=== PATIENT | male | born 1975 | race Caucasian/White ===

== ENCOUNTER → 2024-09-20 07:26 | Outpatient (REF) | payer BC, SELFPAY | LOC: RAD 07:26 | PROVIDERS: ATTENDING PHYSICIAN Nurse Practitioner Family | DX: R05.3 Chronic cough (principal) | CPT/HCPCS: 71046 ==

== ENCOUNTER → 2024-09-24 14:01 | Outpatient (REF) | payer BC, SELFPAY | LOC: HWRAD 14:01 | PROVIDERS: ATTENDING PHYSICIAN Nurse Practitioner Family; FAMILY PHYSICIAN Family Medicine | DX: R93.89 Abnormal findings on diagnostic imaging of other specified body structures (principal); R91.1 Solitary pulmonary nodule | CPT/HCPCS: 71250 ==

== ENCOUNTER → 2025-01-13 13:58 | Outpatient (REF) | payer BC, SELFPAY ==
[2025-01-13 15:10] LABS: % Basophils 0.7 % (0-2); % Eosinophils 3.4 % (0-6); % Immature Granulocytes 0.4 % (0-0.5); % Lymphocytes 29.8 % (20.5-51.1); % Monocytes 6.6 % (1.7-9.3); % Neutrophils 59.1 % (42.2-75.2); Absolute Basophils 0.1 10^3/uL (0-0.2); Absolute Eosinophils 0.3 10^3/uL (0-0.7); Absolute Lymphocytes 2.7 10^3/uL (1.2-3.4); Absolute Monocytes 0.6 10^3/uL (0.1-0.6); Absolute Neutrophils 5.3 10^3/uL (1.4-6.5); Hematocrit 46.7 % (39.0-52.0); Hemoglobin 15.7 g/dL (13.0-18.0); Mean Corp Hgb Conc. 33.6 g/dL (33.0-37.0); Mean Corpuscular Hgb 29.1 pg (27.0-31.0); Mean Corpuscular Volume 86.5 fL (80.0-94.0); Mean Platelet Volume 9.7 fL (7.4-10.4); Nucleated Red Blood Cells % 0 % (-); Platelet Count 245 10^3/uL (130-400); Red Cell Dist. Width 12.7 % (11.5-14.5); White Blood Cell Count 8.9 10^3/uL (4.8-10.8)
[2025-01-16 08:22] LABS: Aspergillus fumigatus 0.39 kU/L (<=0.34); Box Elder/Maple Tree 9.32 kU/L (<=0.34); Cat Epithelium/Dander 6.74 kU/L (<=0.34); Common Pigweed 9.75 kU/L (<=0.34); Cottonwood Tree 4.79 kU/L (<=0.34); Dermatophagoides farinae 9.52 kU/L (<=0.34); Dog Dander 1.97 kU/L (<=0.34); Elm Tree 4.35 kU/L (<=0.34); German Cockroach <0.10 kU/L (<=0.34); Hormodendrum <0.10 kU/L (<=0.34); IgE 595 kU/L (<=214); Mouse Epithelium <0.10 kU/L (<=0.34); Mucor racemosus <0.10 kU/L (<=0.34); Mugwort Weed 8.47 kU/L (<=0.34); Penicillium notatum <0.10 kU/L (<=0.34); White Mulberry Tree 2.49 kU/L (<=0.34)
== END ==
LOC: REG 13:58
PROVIDERS: ATTENDING PHYSICIAN Nurse Practitioner Family
DX: J45.30 Mild persistent asthma, uncomplicated (principal); R05.3 Chronic cough; J30.9 Allergic rhinitis, unspecified
CPT/HCPCS: 36415; 82785; 85025; 86003